=== PATIENT | female | born 1980 | race Caucasian/White ===

== ENCOUNTER 2019-03-20 19:56 | Emergency (ER) | payer SELFPAY ==
[~2019-03-20] VITALS: Ht 175.3 cm; Wt 82.1 kg
[~2019-03-20 19:56] MED LIST: CARAFATE1 G1; LABETALOL; Z.0.SYNTHROID75 MCG PO; Z.1.ZEGERID 40 MG1 E; [UNRECOGNIZED DRUG - OTHER]
--- OUTSIDE RECORDS SUMMARY | 2019-03-20 20:00 | XMS REPORT ---
[facility] Address Unknown Phone Unavailable Care Team Providers Care Helper Metal Hanging Name Role Phone Unavailable Unavailable Payers Payer Name Policy Type Policy Number Effective Date Expiration Date Problems This patient has no known problems. Allergies, Adverse Reactions, Alerts Allergy Name Allergy Type Status Severity Reaction(s) Onset Date Inactive Date Treating Clinician Comments iodine DA Active SV 2017-04-23 00:00:00 benzonatate DA Active SV 2017-04-23 00:00:00 dextromethorphan DA Active SV 2017-04-23 00:00:00 Medications This patient has no known medications. Encounters Start Date/Time End Date/Time Encounter Type Admission Type Attending Clinicians Care Facility Care Department Encounter ID 2017-01-15 00:00:00 Inpatient [facility] [id number] 2017-01-15 00:00:00 Inpatient [facility] [id number] 2017-01-17 00:00:00 2017-01-17 00:00:00 Outpatient [facility] [id number] 2017-01-16 14:18:58 2017-01-16 14:18:58 Outpatient [facility] [id number] 2017-01-16 10:12:14 2017-01-16 00:00:00 Inpatient [facility] [id number] 2017-01-15 19:02:46 2017-01-15 19:02:46 Outpatient [facility] [id number] Results Test Description Test Time Test Comments Text Results Atomic Results Result Comments PROCALCITONIN (PCT) 2019-03-14 15:31:00 PROCALCITONIN (PCT) (test code=PROCAL) 0.47 ng/mL 0.00-0.05 PROCALCITONIN (PCT) NORMAL RANGE (ADULT): <0.05 NG/ML. * a concentration <0.5 ng/mL represents a low risk of severe sepsis and/or septic shock.* a concentration >2 ng/mL represents a high risk of severe sepsis and/or septic shock.Nevertheless, concentrations <0.5 ng/mL do not exclude aninfection, on account of localized infections (withoutsystemic signs) which can be associated with such lowconcentrations, or a systemic infection in its initialstages (< 6 hours). Furthermore, increased procalcitonincan occur without infection. PCT concentrations between 0.5and 2.0 ng/mL should be interpreted taking into account thepatient's history. It is recommended to retest PCT within6-24 hours if any concentrations <2 ng/mL are obtained. PROCALCITONIN (PCT)2019-03-14 15:31:00* Test Item Value Reference Range Comments PROCALCITONIN (PCT) (test code=PROCAL) 0.47 ng/mL 0.00-0.05 PROCALCITONIN (PCT) NORMAL RANGE (ADULT): <0.05 NG/ML. * a concentration <0.5 ng/mL represents a low risk of severe sepsis and/or septic shock.* a concentration >2 ng/mL represents a high risk of severe sepsis and/or septic shock.Nevertheless, concentrations <0.5 ng/mL do not exclude aninfection, on account of localized infections (withoutsystemic signs) which can be associated with such lowconcentrations, or a systemic infection in its initialstages (< 6 hours). Furthermore, increased procalcitonincan occur without infection. PCT concentrations between 0.5and 2.0 ng/mL should be interpreted taking into account thepatient's history. It is recommended to retest PCT within6-24 hours if any concentrations <2 ng/mL are obtained. BASIC METABOLIC [id number] 07:03:00* Test Item Value Reference Range Comments SODIUM (test code=NA) 147 mmol/L 134-147 POTASSIUM (test code=K) 3.1 mmol/L 3.4-5.0 CHLORIDE (test code=CL) 113 mmol/L 100-108 CARBON DIOXIDE (test code=CO2) 26 mmol/L 21-32 ANION GAP (test code=GAP) 8.0 GAP calc 4.0-15.0 GLUCOSE (test code=GLU) 84 MG/DL 70-110 BLOOD UREA NITROGEN (test code=BUN) 9 MG/DL 7-18 GLOMERULAR FILTRATION RATE (test code=GFR) >=60 max estimate estGFR >60 CREATININE (test code=CREAT) 0.6 MG/DL 0.6-1.0 CALCIUM (test code=CA) 7.9 MG/DL 8.5-10.1 CREATINE KINASE (CK)2019-03-14 07:03:00* Test Item Value Reference Range Comments CREATINE KINASE (CK) (test code=CK) 1022 Unit/L 26-192 CBC W/AUTO [id number] 06:36:00* Test Item Value Reference Range Comments WHITE BLOOD CELL (test code=WBC) 14.8 K/mm3 3.5-11.0 RED BLOOD CELL (test code=RBC) 3.21 M/mm3 4.70-6.10 HEMOGLOBIN (test code=HGB) 9.7 G/DL 10.4-14.9 HEMATOCRIT (test code=HCT) 29.8 % 31.5-44.1 MEAN CELL VOLUME (test code=MCV) 92.8 Fl 84.5-98.6 MEAN CELL HGB (test code=MCH) 30.2 pg 27.0-34.2 MEAN CELL HGB CONCETRATION (test code=MCHC) 32.6 G/DL 31.5-34.0 RED CELL DISTRIBUTION WIDTH (test code=RDW) 14.9 SD 11.5-14.5 PLATELET COUNT (test code=PLT) 284.0 K/mm3 150-450 MEAN PLATELET VOLUME (test code=MPV) 12.00 fL 7.0-10.5 NEUTROPHIL % (test code=NT%) 78.4 % 40-76 LYMPHOCYTE % (test code=LY%) 12.6 % 20.5-51.1 MONOCYTE % (test code=MO%) 8.4 % 1.7-9.3 EOSINOPHIL % (test code=EO%) 0.5 % 0.0-6.0 BASOPHIL % (test code=BA%) 0.1 % 0.0-2.0 NEUTROPHIL # (test code=NT#) 11.63 K/mm3 1.8-7.6 LYMPHOCYTE # (test code=LY#) 1.9 K/mm3 0.6-3.2 MONOCYTE # (test code=MO#) 1.3 K/mm3 0.3-1.1 EOSINOPHIL # (test code=EO#) 0.1 K/mm3 0.0-0.4 BASOPHIL # (test code=BA#) 0.0 K/mm3 0.0-0.1 MANUAL DIFF REQUIRED (test code=MDIFF) NO DIFF/SCN CRITERIA CREATINE KINASE (CK)2019-03-13 07:38:00* Test Item Value Reference Range Comments CREATINE KINASE (CK) (test code=CK) 2235 Unit/L 26-192 COMPREHENSIVE METABOLIC [id number] 04:18:00* Test Item Value Reference Range Comments SODIUM (test code=NA) 149 mmol/L 134-147 POTASSIUM (test code=K) 3.4 mmol/L 3.4-5.0 CHLORIDE (test code=CL) 117 mmol/L 100-108 CARBON DIOXIDE (test code=CO2) 24 mmol/L 21-32 ANION GAP (test code=GAP) 8.0 GAP calc 4.0-15.0 GLUCOSE (test code=GLU) 111 MG/DL 70-110 BLOOD UREA NITROGEN (test code=BUN) 7 MG/DL 7-18 GLOMERULAR FILTRATION RATE (test code=GFR) >=60 max estimate estGFR >60 CREATININE (test code=CREAT) 0.6 MG/DL 0.6-1.0 TOTAL PROTEIN (test code=PROT) 5.7 G/DL 6.4-8.2 ALBUMIN (test code=ALB) 2.5 G/DL 3.4-5.0 GLOBULIN (test code=GLOB) 3.2 GM/dL ALBUMIN/GLOBULIN RATIO (test code=A/G) 0.8 RATIO 1.2-2.2 CALCIUM (test code=CA) 7.7 MG/DL 8.5-10.1 BILIRUBIN TOTAL (test code=BILT) 0.50 MG/DL 0.2-1.2 SGOT/AST (test code=AST) 261 Unit/L 15-37 SGPT/ALT (test code=ALT) 479 Unit/L 12-78 ALKALINE PHOSPHATASE TOTAL (test code=ALKP) 59 Unit/L 45-117 CBC W/AUTO [id number] 04:04:00* Test Item Value Reference Range Comments WHITE BLOOD CELL (test code=WBC) 19.5 K/mm3 3.5-11.0 RED BLOOD CELL (test code=RBC) 3.12 M/mm3 4.70-6.10 HEMOGLOBIN (test code=HGB) 9.7 G/DL 10.4-14.9 HEMATOCRIT (test code=HCT) 28.9 % 31.5-44.1 MEAN CELL VOLUME (test code=MCV) 92.6 Fl 84.5-98.6 MEAN CELL HGB (test code=MCH) 31.1 pg 27.0-34.2 MEAN CELL HGB CONCETRATION (test code=MCHC) 33.6 G/DL 31.5-34.0 RED CELL DISTRIBUTION WIDTH (test code=RDW) 14.9 SD 11.5-14.5 PLATELET COUNT (test code=PLT) 256.0 K/mm3 150-450 MEAN PLATELET VOLUME (test code=MPV) 11.60 fL 7.0-10.5 NEUTROPHIL % (test code=NT%) 90.1 % 40-76 LYMPHOCYTE % (test code=LY%) 5.4 % 20.5-51.1 MONOCYTE % (test code=MO%) 4.4 % 1.7-9.3 EOSINOPHIL % (test code=EO%) 0.0 % 0.0-6.0 BASOPHIL % (test code=BA%) 0.1 % 0.0-2.0 NEUTROPHIL # (test code=NT#) 17.61 K/mm3 1.8-7.6 LYMPHOCYTE # (test code=LY#) 1.1 K/mm3 0.6-3.2 MONOCYTE # (test code=MO#) 0.9 K/mm3 0.3-1.1 EOSINOPHIL # (test code=EO#) 0.0 K/mm3 0.0-0.4 BASOPHIL # (test code=BA#) 0.0 K/mm3 0.0-0.1 MANUAL DIFF REQUIRED (test code=MDIFF) NO DIFF/SCN CRITERIA PROCALCITONIN (PCT)2019-03-13 03:30:00* Test Item Value Reference Range Comments PROCALCITONIN (PCT) (test code=PROCAL) 1.69 ng/mL 0.00-0.05 PROCALCITONIN (PCT) NORMAL RANGE (ADULT): <0.05 NG/ML. * a concentration <0.5 ng/mL represents a low risk of severe sepsis and/or septic shock.* a concentration >2 ng/mL represents a high risk of severe sepsis and/or septic shock.Nevertheless, concentrations <0.5 ng/mL do not exclude aninfection, on account of localized infections (withoutsystemic signs) which can be associated with such lowconcentrations, or a systemic infection in its initialstages (< 6 hours). Furthermore, increased procalcitonincan occur without infection. PCT concentrations between 0.5and 2.0 ng/mL should be interpreted taking into account thepatient's history. It is recommended to retest PCT within6-24 hours if any concentrations <2 ng/mL are obtained. PROCALCITONIN (PCT)2019-03-13 03:29:00* Test Item Value Reference Range Comments PROCALCITONIN (PCT) (test code=PROCAL) 1.69 ng/mL 0.00-0.05 PROCALCITONIN (PCT) NORMAL RANGE (ADULT): <0.05 NG/ML. * a concentration <0.5 ng/mL represents a low risk of severe sepsis and/or septic shock.* a concentration >2 ng/mL represents a high risk of severe sepsis and/or septic shock.Nevertheless, concentrations <0.5 ng/mL do not exclude aninfection, on account of localized infections (withoutsystemic signs) which can be associated with such lowconcentrations, or a systemic infection in its initialstages (< 6 hours). Furthermore, increased procalcitonincan occur without infection. PCT concentrations between 0.5and 2.0 ng/mL should be interpreted taking into account thepatient's history. It is recommended to retest PCT within6-24 hours if any concentrations <2 ng/mL are obtained. THROMBOPLASTIN TIME [id number] 23:09:00* Test Item Value Reference Range Comments THROMBOPLASTIN TIME PARTIAL (test code=PTT) 53.5 SECONDS 26-35 - CTA CHEST FOR [id number] 22:22:00 Name: RAQUELMEIJOSE UMAÑA [facility] : 1980 Age/S: 38 / F [address] [facility] [place] Unit #: [id number] Loc: [place] [address] Phys: Bernard Acevedo MD Acct: [id number] Dis Date: Status: ADM IN PHONE #: [phone] Exam Date: 03/12/20192124 FAX #: Reason: PE EXAMS: CPT: [id number] [place] [address] DICTATION LOCATION: H48 HISTORY: Female, 38 years of age with the CT scan showing intermediate probability for pulmonary embolism. EXAM: CT ANGIOGRAPHY OF THE CHEST COMPARISON: Chest x-ray and nuclear VQ scan performed today TECHNIQUE: Helical axial images were obtained from thoracic inlet to upper abdomen with nonionic IV contrast using the CT angiography protocol. Image post processing with MIP and multiplanar reconstruction were performed at the advanced workstation. One or more of the following dose reduction techniques were used: Automated exposure control; adjustment of the mA and/or kV according to the patient size; and/or use of iterative reconstruction technique. FINDINGS: AORTA: No aneurysm or dissection. PULMONARY ARTERIES: Within normal limits size and moderately well enhanced. There is no abnormal filling defect to suggest pulmonary embolism. HEART: Heart size within normal limits. No significant pericardial effusion. MEDIASTINUM: No pathologically enlarged lymph nodes by CT criteria. Thyroid is not seen. PLEURA: There are small bilateral pleural effusions, right greater than areas LUNGS: Patchy alveolar and interstitial changes are seen throughout left upper lobe and left lower lobe. Milder interstitial opacities are seen in right upper lung, however, and right lower lobe. Compressive atelectasis seen in the right. No tracheobronchial filling defects. No significant emphysema. No obvious mass lesion. OTHER: Images through the upper abdomen show a small amount of ascites. Spleen has been surgically removed by history. Several small nodules are seen in the left subdiaphragmatic region, most likely representing small splenules. No acute osseous abnormality. IMPRESSION: 1. No pulmonary embolism. 2. No aortic ane urysm or dissection. 3. Panlobar pneumonia, worst in left lower lobe. 4. Bilateral pleural effusions left greater than right. 5. Small a mount of ascites. PAGE 1 Signed Report (CONTINUED) [facility] [place] [facility] 1980 Age/S: 38 / F [address] [address] [place] Unit #: [id number] Loc: [place] [address] Phys: Bernard Acevedo MD Acct: [id number] Dis Date: Status: ADM IN PHONE #: [phone] Exam Date: 03/12/20192124 FAX #: Reason: PE EXAMS: CPT: [id number] [place] [address] <Continued> at 2222 Reported and signed by: Dawn Isbell MD CC: Bernard Acevedo MD; Cristhian Keene MD Technologist:Jyoti Levin, RT(R)(CT)(MRI) CTDI: DLP: Trnscb Obey e/Time: 03/12/2019 (2221) [email or web address] Orig Print D/T: S: (2225) PAGE 2 Signed Report THROMBOPLASTIN TIME [id number] 18:20:00* Test Item Value Reference Range Comments THROMBOPLASTIN TIME PARTIAL (test code=PTT) 45.7 SECONDS 26-35 THROMBOPLASTIN TIME [id number] 11:50:00* Test Item Value Reference Range Comments THROMBOPLASTIN TIME PARTIAL (test code=PTT) 56.1 SECONDS 26-35 - PULM VENT PERF [id number] 08:52:00 FAX: Cristhian Keene MD [phone] Camps: PM St: ADM Name: JOSE IZQUIERDO [facility] : 2 Age/S: 38/F [address] [address] [place] Unit #: [id number] Loc: L.ICU0 [place] [address] Phys: Cristhian Keene MD Acct: [id number] Dis Date: Status: ADM IN PHONE #: [phone] Exam Date: 03/12/2019 0839 FAX #: Reason: to r/o PE EXAMS: CPT: [id number] PULM VENT PERF IMAG 67806 EXAM: - PULM VENT PERF IMAG LOCATION: C3 HISTORY: Pain RADIOPHARMAC EUTICAL: 5 mCi Tc 99 MAA and 10 mCi Xe-133 gas. COMPARISON: None a vailable time of interpretation. FINDINGS: VENTILATI ON: There is homogeneous distribution of radiotracer on the breath-hold im ages.No retention is seen on the washout images. PERFUSION: There is mild heterogeneous distribution of radiotracer throughout both lungs. Moderate to large segmental perfusion defect identified at the medial segm ent of the right middle lobe. IMPRESSION: Inte rmediate probability for pulmonary embolus. Electronicall y Signed by EVANGELISTA PIERCE M.D. on 03/12/2019 at 0852 Reported and signed by: EVANGELISTA PIERCE M.D. CC: Cristhian Keene MD Techno logist: RADHA Arevalo Transcribed Date/ Time/By: 03/12/2019 (0852) :[email or web address] Orig Print D/T: S: 03/12/2019 (0 855) PAGE 1 Signed Report - XR CHEST 1 [id number] 08:34:00 Name: JOSE SCHOFIELD [facility] : 1980 Age/S: 38 / F [address] [address] [place] Unit #: [id number] Loc: [place] [address] Phys: Cristhian Keene MD Acct: [id number] Dis Date: Status: ADM IN PHONE #: [phone] Exam Date: 03/12/2019 0824 FAX #: Reason: VQ PROTOCOL EXAMS: CPT: [id number] XR CHEST 1 V 01943 Fluoro Time: DAP (Gy m2): Air Kerma (mGy): EXAMINATION: - XR CHEST 1 V. LOCATION: S17. HISTORY: VQ PROTOCOL, pneumonia, AMS, ingestion. COMPARISON: Chest x-ray 03/10/2019. FINDINGS: Examination is limited due to portable technique and patient body habitus.. Cardiac silhouette/Mediastinal contour: Within normal limits. Lungs: New left lung base airspace opacity. No large pleu ral effusion. Pulmonary vascular congestion. Osseous Structu res: No acute osseous abnormalities. Additional Findings: Postope rative clips project over left upper abdomen. IMPRESSION: New left lung base airspace opacity, may represent atelectas is versus infiltrate. Pulmonary vascular congestion. at 0834 Repo rted and signed by: Margarita Gomes M.D. CC: Cristhian Keene MD PAGE 1 Signed Rep ort Name: JOSE SCHOFIELD KAUSHI[facility] [place] : 1980 Age/S: 38 / F [address] [facility] Unit #: [id number] Loc: [place], [place] [address] Phys: Cristhian Keene MD Acct: [id number] Dis Date: Status: ADM IN PHONE #: [phone] Exam Date: 03/12/2019823 FAX #: Reason: VQ PROTOCOL EXAMS: CPT: [id number] XR CHEST 1 V 65538 Fluoro Time: DAP (Gy m2): Air Kerma (mGy): < Continued> Technologist: Soniya Quezada, RT(R); Clifton Pimentel RT(R)(MR) Trnscb Date/Time: 03/12/2019 (0834) [email or web address] Orig Print D/T: S: 03/12/2019 (0837) PAGE 2 Signed Report COMPREHENSIVE METABOLIC [id number] 06:52:00* Test Item Value Reference Range Comments SODIUM (test code=NA) 145 mmol/L 134-147 POTASSIUM (test code=K) 3.5 mmol/L 3.4-5.0 CHLORIDE (test code=CL) 118 mmol/L 100-108 CARBON DIOXIDE (test code=CO2) 22 mmol/L 21-32 ANION GAP (test code=GAP) 5.0 GAP calc 4.0-15.0 GLUCOSE (test code=GLU) 96 MG/DL 70-110 BLOOD UREA NITROGEN (test code=BUN) 7 MG/DL 7-18 GLOMERULAR FILTRATION RATE (test code=GFR) >=60 max estimate estGFR >60 CREATININE (test code=CREAT) 0.6 MG/DL 0.6-1.0 TOTAL PROTEIN (test code=PROT) 6.0 G/DL 6.4-8.2 ALBUMIN (test code=ALB) 2.7 G/DL 3.4-5.0 GLOBULIN (test code=GLOB) 3.3 GM/dL ALBUMIN/GLOBULIN RATIO (test code=A/G) 0.8 RATIO 1.2-2.2 CALCIUM (test code=CA) 7.5 MG/DL 8.5-10.1 BILIRUBIN TOTAL (test code=BILT) 0.40 MG/DL 0.2-1.2 SGOT/AST (test code=AST) 540 Unit/L 15-37 SGPT/ALT (test code=ALT) 653 Unit/L 12-78 ALKALINE PHOSPHATASE TOTAL (test code=ALKP) 53 Unit/L 45-117 [id number] 06:52:00* Test Item Value Reference Range Comments MAGNESIUM (test code=MAG) 1.9 MG/DL 1.8-2.4 T4 [id number] 06:52:00* Test Item Value Reference Range Comments T4 FREE (test code=T4F) 1.20 NG/DL 0.89-1.76 THYROID STIMULATING [id number] 06:52:00* Test Item Value Reference Range Comments THYROID STIMULATING HORMONE (test code=TSH) 4.550 mcIU/ML 0.340-4.820 THROMBOPLASTIN TIME [id number] 06:07:00* Test Item Value Reference Range Comments THROMBOPLASTIN TIME PARTIAL (test code=PTT) 60.1 SECONDS 26-35 CBC W/AUTO [id number] 06:06:00* Test Item Value Reference Range Comments WHITE BLOOD CELL (test code=WBC) 21.4 K/mm3 3.5-11.0 RED BLOOD CELL (test code=RBC) 3.51 M/mm3 4.70-6.10 HEMOGLOBIN (test code=HGB) 10.6 G/DL 10.4-14.9 HEMATOCRIT (test code=HCT) 33.5 % 31.5-44.1 MEAN CELL VOLUME (test code=MCV) 95.4 Fl 84.5-98.6 MEAN CELL HGB (test code=MCH) 30.2 pg 27.0-34.2 MEAN CELL HGB CONCETRATION (test code=MCHC) 31.6 G/DL 31.5-34.0 RED CELL DISTRIBUTION WIDTH (test code=RDW) 15.2 SD 11.5-14.5 PLATELET COUNT (test code=PLT) 261.0 K/mm3 150-450 MEAN PLATELET VOLUME (test code=MPV) 11.30 fL 7.0-10.5 NEUTROPHIL % (test code=NT%) 88.6 % 40-76 LYMPHOCYTE % (test code=LY%) 7.2 % 20.5-51.1 MONOCYTE % (test code=MO%) 4.1 % 1.7-9.3 EOSINOPHIL % (test code=EO%) 0.1 % 0.0-6.0 BASOPHIL % (test code=BA%) 0.0 % 0.0-2.0 NEUTROPHIL # (test code=NT#) 18.95 K/mm3 1.8-7.6 LYMPHOCYTE # (test code=LY#) 1.5 K/mm3 0.6-3.2 MONOCYTE # (test code=MO#) 0.9 K/mm3 0.3-1.1 EOSINOPHIL # (test code=EO#) 0.0 K/mm3 0.0-0.4 BASOPHIL # (test code=BA#) 0.0 K/mm3 0.0-0.1 MANUAL DIFF REQUIRED (test code=MDIFF) NO DIFF/SCN CRITERIA THROMBOPLASTIN TIME [id number] 00:06:00* Test Item Value Reference Range Comments THROMBOPLASTIN TIME PARTIAL (test code=PTT) 85.0 SECONDS 26-35 CREATINE KINASE (CK)2019-03-11 19:20:00* Test Item Value Reference Range Comments CREATINE KINASE (CK) (test code=CK) 5526 Unit/L 26-192 ARTERIAL BLOOD [id number] 18:51:00* Test Item Value Reference Range Comments ARTERIAL BLOOD GAS PH (test code=PHA) 7.37 pH units 7.35-7.45 ARTERIAL BLOOD GAS PCO2 (test code=PCO2A) 33 mmHg 35-45 ARTERIAL BLOOD GAS PO2 (test code=PO2A) 81 mmHg 80-100 BICARBONATE TOTAL HCO3 (test code=HCO3) 18.4 mmol/L 22.0-26.0 BASE EXCESS (test code=JOJO) -5.8 mmol/L -3.0-3.0 ABG O2 SATURATION (test code=SATA) 96 % 90-100 FIO2 (test code=FIO2A) 28 % e 21-100 ABG VENT MODE (test code=MODEA) Nasal Cannula Descript Vent Mode ABG SITE (test code=SITEA) Right Radial ARTKIT DESCRIPTION MODIFIED ANTONIO'S (test code=MODALL) Yes Circ.CHK POSITIVE LACTIC [id number] 18:51:00* Test Item Value Reference Range Comments LACTIC ACID (test code=LACT) 1.2 mmol/L 0.4-2.0 THROMBOPLASTIN TIME [id number] 16:50:00* Test Item Value Reference Range Comments THROMBOPLASTIN TIME PARTIAL (test code=PTT) 118.5 SECONDS 26-35 - XR HIP W/PEL UNI 2+V [id number] 14:47:00 Name: JOSE SCHOFIELD [facility] [place] : 1980 Age/S: 38 / F [address] [address] [place] Unit #: [id number] Loc: [place] [address] Phys: Cristhian Keene MD Acct: [id number] Dis Date: Status: ADM IN PHONE #: [phone] Exam Date: 03/11/2019 1354 FAX #: Reason: pain EXAMS: CPT: [id number] XR HIP W/PEL UNI 2+[place] [address] Fluoro Time: DAP (Gy m2): Air Kerma (mGy): Site ID: [id number] INDICATION: Right hip pain FINDINGS: Osseous alignment and bone mineral density are normal. No fracture or femoral head osteonecrosis. No joint space narrowing or arthritic change demonstrated involving the right hip or SI joint. Soft tissues are within normal limits. IMPRESSION: Normal right hip x-rays at 1447 Reported and signed by: Mechelle Mooney M.D. CC: Cristhian Keene MD PAGE 1 Signed Report Name: JOSE SCHOFIELD ÁLVARO [place] : 1980 Age/S: 38 / F [address] [address] [place] Unit #: [id number] Loc: [place] [address] Phys: Cristhian Keene MD Acct: [id number] Dis Date: Status: ADM IN PHONE #: [phone] Exam Date: 03/11/2019 4489 FAX #: Reason: pain EXAMS: CPT: [id number] XR HIP W/PEL UNI 2+[place] [address] Fluoro Time: DAP (Gy m2): Air Kerma (mGy): < Continued> Technologist: Tashia Iyer, RT(R)(MR); Soniya Quezada, RT(R) Trnscb Date/Time: 03/11/2019 (8238) [id number] Orig Print D/T: S: 03/11/2019 (5070) PAGE 2 Signed Report THROMBOPLASTIN TIME [id number] 11:12:00* Test Item Value Reference Range Comments THROMBOPLASTIN TIME PARTIAL (test code=PTT) 124.6 SECONDS 26-35 LACTIC [id number] 10:47:00* Test Item Value Reference Range Comments LACTIC ACID (test code=LACT) 2.3 mmol/L 0.4-2.0 LACTIC [id number] 06:56:00* Test Item Value Reference Range Comments LACTIC ACID (test code=LACT) 2.6 mmol/L 0.4-2.0 GLYCOSYLATED HEMOGLOBIN [id number] 04:56:00* Test Item Value Reference Range Comments GLYCOSYLATED HEMOGLOBIN (HA1C) (test code=GLYHGB) 4.8 % A1C 4.2-6.3 ESTIMATED AVERAGE GLUCOSE (test code=EAG) 91 MG/DLest THROMBOPLASTIN TIME [id number] 04:44:00* Test Item Value Reference Range Comments THROMBOPLASTIN TIME PARTIAL (test code=PTT) 28.0 SECONDS 26-35 BASIC METABOLIC [id number] 04:32:00* Test Item Value Reference Range Comments SODIUM (test code=NA) 143 mmol/L 134-147 POTASSIUM (test code=K) 4.0 mmol/L 3.4-5.0 CHLORIDE (test code=CL) 115 mmol/L 100-108 CARBON DIOXIDE (test code=CO2) 21 mmol/L 21-32 ANION GAP (test code=GAP) 7.0 GAP calc 4.0-15.0 GLUCOSE (test code=GLU) 118 MG/DL 70-110 BLOOD UREA NITROGEN (test code=BUN) 11 MG/DL 7-18 GLOMERULAR FILTRATION RATE (test code=GFR) 54 estGFR >60 CREATININE (test code=CREAT) 1.2 MG/DL 0.6-1.0 CALCIUM (test code=CA) 7.1 MG/DL 8.5-10.1 LIPID PROFILE (CORONARY RISK)2019-03-11 04:32:00* Test Item Value Reference Range Comments TRIGLYCERIDES (test code=TRIG) 48 MG/DL 0-150 CHOLESTEROL (test code=CHOL) 90 MG/DL 133-200 CHOLESTEROL/HDL RATIO (test code=CHOLHDL) 1.67 RATIO >0 HDL CHOLESTEROL (test code=HDL) 54 MG/DL 40-59 NON-HDL CHOLESTEROL (test code=NHDL) 36 mg/dL <130 LIPOPROTEIN LDL (test code=LDL) 30 MG/DL 0-129 LDL/HDL (test code=LDL/HDL) 0.55 Ratio 1.48-3.22 Avg CBC W/AUTO [id number] 04:22:00* Test Item Value Reference Range Comments WHITE BLOOD CELL (test code=WBC) 21.9 K/mm3 3.5-11.0 RED BLOOD CELL (test code=RBC) 3.54 M/mm3 4.70-6.10 HEMOGLOBIN (test code=HGB) 11.0 G/DL 10.4-14.9 HEMATOCRIT (test code=HCT) 33.6 % 31.5-44.1 MEAN CELL VOLUME (test code=MCV) 94.9 Fl 84.5-98.6 MEAN CELL HGB (test code=MCH) 31.1 pg 27.0-34.2 MEAN CELL HGB CONCETRATION (test code=MCHC) 32.7 G/DL 31.5-34.0 RED CELL DISTRIBUTION WIDTH (test code=RDW) 14.7 SD 11.5-14.5 PLATELET COUNT (test code=PLT) 276.0 K/mm3 150-450 MEAN PLATELET VOLUME (test code=MPV) 10.60 fL 7.0-10.5 NEUTROPHIL % (test code=NT%) 90.0 % 40-76 LYMPHOCYTE % (test code=LY%) 5.9 % 20.5-51.1 MONOCYTE % (test code=MO%) 4.1 % 1.7-9.3 EOSINOPHIL % (test code=EO%) 0.0 % 0.0-6.0 BASOPHIL % (test code=BA%) 0.0 % 0.0-2.0 NEUTROPHIL # (test code=NT#) 19.71 K/mm3 1.8-7.6 LYMPHOCYTE # (test code=LY#) 1.3 K/mm3 0.6-3.2 MONOCYTE # (test code=MO#) 0.9 K/mm3 0.3-1.1 EOSINOPHIL # (test code=EO#) 0.0 K/mm3 0.0-0.4 BASOPHIL # (test code=BA#) 0.0 K/mm3 0.0-0.1 MANUAL DIFF REQUIRED (test code=MDIFF) NO DIFF/SCN CRITERIA LACTIC [id number] 03:26:00* Test Item Value Reference Range Comments LACTIC ACID (test code=LACT) 2.9 mmol/L 0.4-2.0 HEPATIC FUNCTION [id number] 03:25:00* Test Item Value Reference Range Comments TOTAL PROTEIN (test code=PROT) 5.9 G/DL 6.4-8.2 ALBUMIN (test code=ALB) 2.8 G/DL 3.4-5.0 BILIRUBIN TOTAL (test code=BILT) 0.40 MG/DL 0.2-1.2 BILIRUBIN DIRECT (test code=BILD) 0.10 MG/DL 0.00-0.30 BILIRUBIN INDIRECT (test code=BILIND) 0.30 MG/DL 0.2-1.2 SGOT/AST (test code=AST) 1007 Unit/L 15-37 SGPT/ALT (test code=ALT) 674 Unit/L 12-78 ALKALINE PHOSPHATASE TOTAL (test code=ALKP) 42 Unit/L 45-117 Last Dose Date: 03/10/19 Dose Time: 0600RULE OUT PR [id number] 03:25:00* Test Item Value Reference Range Comments CREATINE KINASE (CK) (test code=CK) 6721 Unit/L 26-192 TROPONIN-I (test code=TROPI) 3.280 NG/ML 0.000-0.045 Negative: </=0.045 Positive: >/=0.046 Correlation with serial results, other cardiac markers, and clinical findings is necessary to determine the clinical significance of this result. Quantitative results using different methodologies should not be compared to one another as numerical results may varyby method. Last Dose Date: 03/10/19Last Dose Time: [id number] 03:25:00* Test Item Value Reference Range Comments ACETAMINOPHEN (test code=ACET) < 2.0 mcG/ML 10.0-30.0 Last Dose Date: 03/10/19Last Dose Time: [id number] 02:52:00* Test Item Value Reference Range Comments AMMONIA (test code=AMM) 26 mcMOL/L 11-32 RULE OUT PR [id number] 22:39:00* Test Item Value Reference Range Comments CREATINE KINASE (CK) (test code=CK) 6615 Unit/L 26-192 TROPONIN-I (test code=TROPI) 3.000 NG/ML 0.000-0.045 Negative: </=0.045 Positive: >/=0.046 Correlation with serial results, other cardiac markers, and clinical findings is necessary to determine the clinical significance of this result. Quantitative results using different methodologies should not be compared to one another as numerical results may varyby method. LACTIC [id number] 22:36:00* Test Item Value Reference Range Comments LACTIC ACID (test code=LACT) 3.3 mmol/L 0.4-2.0 - US ABDOMEN [id number] 22:33:00 Name: JOSE SCHOFIELD [facility] : 1980 Age/S: 38 / F [address] [facility] Unit #: [id number] Loc: [place] [address] Phys: Cristhian Keene MD Acct: [id number] Dis Date: Status: ADM IN PHONE #: [phone] Exam Date: 03/10/20192007 FAX #: Reason: Elevated LFT EXAMS: CPT: [id number] US ABDOMEN COMPLETE 12754 HISTORY: Pain Location: C3 FINDINGS: No gallstones demonstrated. There is suggestion of small amount of sludge. Gallbladder wall thickening is present. The common bile duct is within normal limits measuring 2 mm. There is mild increased echogenicity throughout the liver consistent with fatty infiltration. No focal liver lesion is demonstrated. The kidneys are symmetric in size and appearance bilaterally. No hydronephrosis. Spleen is absent. Aorta, intrahepatic IVC, and visualized portions of the pancreas show no significant abnormalities. IMPRESSION: 1. Small amount of sludge suggested in the gallbladder with gallbladder wall thickening. No gallstones demonstrated. 2. No biliary dilatation. 3. Prior splenectomy at 2233 Reported and signed by: Lester Calle M.D. CC: Cristhian Keene MD Technologist: Sonam Hawkins RDMS Trnscb Date/Time: 03/10/2019 (2232) [id number] PAGE 1 Signed Report Name: JOSE SCHOFIELD : 1980 Age/S: 38 / F [address] [address] Unit #: [id number] Loc: [place] [address] Phys: Cristhian Keene MD Acct: [id number] Dis Date: Status: ADM IN PHONE #: [phone] Exam Date: 03/10/20192007 FAX #: Reason: Elevated LFT EXAMS: CPT: [id number] US ABDOMEN COMPLETE 27608 <Continued> Orig Print D/T: S: 03/10/2019 (2235) Probe: PAGE 2 Signed Report THROMBOPLASTIN TIME [id number] 22:12:00* Test Item Value Reference Range Comments THROMBOPLASTIN TIME PARTIAL (test code=PTT) 37.8 SECONDS 26-35 UA RFLX MICR CULT IF [id number] 22:07:00* Test Item Value Reference Range Comments UA COLOR (test code=COLU) DARK YELLOW discript YEL/STRAW Previously reported result: YELLOW discriptEdited by: L.LAB.DTS on 03/10/19:2206 UA APPEARANCE (test code=APPU) SLIGHTLY CLOUDY discript CLEAR Previously reported result: CLEAR discriptEdited by: L.LAB.DTS on 03/10/19:2205 UA GLUCOSE DIPSTICK (test code=DGLUU) NEGATIVE mg/dL NEG UA BILIRUBIN DIPSTICK (test code=BILU) NEGATIVE mg/dL NEG UA KETONE DIPSTICK (test code=KETU) TRACE mg/dL NEG UA SPECIFIC GRAVITY (test code=SGU) >=1.030 SG 1.005-1.030 UA BLOOD DIPSTICK (test code=ANUSHA) 3+ mg/DL NEG UA PH DIPSTICK (test code=PAPO) 5.5 pH UNITS 5.0-7.0 UA PROTEIN DIPSTICK (test code=PROU) 2+ mg/dL NEG UA UROBILINIOGEN DIPSTICK (test code=URO) 1.0 mg/dL <2.0 UA NITRITE DIPSTICK (test code=HELEN) NEGATIVE SCREEN NEG UA LEUKOCYTE ESTERASE DIPSTICK (test code=LEUU) NEGATIVE Leuk/mcL NEGATIVE UA WBC (test code=WBCU) NONE SEEN #WBC/HPF 0-3 UA RBC (test code=RBCU) 1-3 #RBC/HPF 0-3 UA BACTERIA (test code=BACU) NONE SEEN /HPF NONE-TRACE UA SQUAMOUS CELLS (test code=SQU) NONE SEEN /HPF NONE UA AMORPHOUS SEDIMENT (test code=AMORU) 1+ NONE SEEN UA CULTURE NEEDED? (test code=UACULT) NO, WBC<10 Criteria Culture CHK SOURCE OF URINE: CLEAN CATCHIndication for culture: Delirium-if no other src DRUGS OF ABUSE SCREEN [id number] 22:07:00* Test Item Value Reference Range Comments URN COCAINE (test code=COCAURN) NEGATIVE SCcutoff <300 NG/ML URN CANNABINOIDS (test code=CANNABURN) NEGATIVE SCcutoff <50 NG/ML URN AMPHETAMINE (test code=AMPHETURN) POSITIVE SCcutoff <1000 NG/ML URN BARBITURATE (test code=BARBITURN) NEGATIVE SCcutoff <200 NG/ML URN BENZODIAZEPINE (test code=BENZOURN) NEGATIVE SCcutoff <200 NG/ML URN OPIATES (test code=OPIATURN) POSITIVE SCcutoff <2000 NG/ML URN PHENCYCLIDINE (PCP) (test code=PHENCURN) NEGATIVE SCcutoff <25 NG/ML URN METHADONE (test code=METHAURN) NEGATIVE SCcutoff <300 NG/ML SOURCE OF URINE: CLEAN CATCHIndication for culture: Delirium-if no other src UA RFLX MICR CULT IF [id number] 22:04:00* Test Item Value Reference Range Comments UA COLOR (test code=COLU) YELLOW discript YEL/STRAW UA APPEARANCE (test code=APPU) CLEAR discript CLEAR UA GLUCOSE DIPSTICK (test code=DGLUU) NEGATIVE mg/dL NEG UA BILIRUBIN DIPSTICK (test code=BILU) NEGATIVE mg/dL NEG UA KETONE DIPSTICK (test code=KETU) TRACE mg/dL NEG UA SPECIFIC GRAVITY (test code=SGU) >=1.030 SG 1.005-1.030 UA BLOOD DIPSTICK (test code=ANUSHA) 3+ mg/DL NEG UA PH DIPSTICK (test code=PAPO) 5.5 pH UNITS 5.0-7.0 UA PROTEIN DIPSTICK (test code=PROU) 2+ mg/dL NEG UA UROBILINIOGEN DIPSTICK (test code=URO) 1.0 mg/dL <2.0 UA NITRITE DIPSTICK (test code=HELEN) NEGATIVE SCREEN NEG UA LEUKOCYTE ESTERASE DIPSTICK (test code=LEUU) NEGATIVE Leuk/mcL NEGATIVE UA WBC (test code=WBCU) NONE SEEN #WBC/HPF 0-3 UA RBC (test code=RBCU) 1-3 #RBC/HPF 0-3 UA BACTERIA (test code=BACU) NONE SEEN /HPF NONE-TRACE UA SQUAMOUS CELLS (test code=SQU) NONE SEEN /HPF NONE UA AMORPHOUS SEDIMENT (test code=AMORU) 1+ NONE SEEN UA CULTURE NEEDED? (test code=UACULT) NO, WBC<10 Criteria Culture CHK SOURCE OF URINE: CLEAN CATCHIndication for culture: Delirium-if no other src DRUGS OF ABUSE SCREEN [id number] 22:04:00* Test Item Value Reference Range Comments URN COCAINE (test code=COCAURN) NEGATIVE SCcutoff <300 NG/ML URN CANNABINOIDS (test code=CANNABURN) NEGATIVE SCcutoff <50 NG/ML URN AMPHETAMINE (test code=AMPHETURN) POSITIVE SCcutoff <1000 NG/ML URN BARBITURATE (test code=BARBITURN) NEGATIVE SCcutoff <200 NG/ML URN BENZODIAZEPINE (test code=BENZOURN) NEGATIVE SCcutoff <200 NG/ML URN OPIATES (test code=OPIATURN) POSITIVE SCcutoff <2000 NG/ML URN PHENCYCLIDINE (PCP) (test code=PHENCURN) NEGATIVE SCcutoff <25 NG/ML URN METHADONE (test code=METHAURN) NEGATIVE SCcutoff <300 NG/ML SOURCE OF URINE: CLEAN CATCHIndication for culture: Delirium-if no other src UA RFLX MICR CULT IF [id number] 21:33:00* Test Item Value Reference Range Comments UA COLOR (test code=COLU) YELLOW discript YEL/STRAW UA APPEARANCE (test code=APPU) CLEAR discript CLEAR UA GLUCOSE DIPSTICK (test code=DGLUU) NEGATIVE mg/dL NEG UA BILIRUBIN DIPSTICK (test code=BILU) NEGATIVE mg/dL NEG UA KETONE DIPSTICK (test code=KETU) TRACE mg/dL NEG UA SPECIFIC GRAVITY (test code=SGU) >=1.030 SG 1.005-1.030 UA BLOOD DIPSTICK (test code=ANUSHA) 3+ mg/DL NEG UA PH DIPSTICK (test code=PAPO) 5.5 pH UNITS 5.0-7.0 UA PROTEIN DIPSTICK (test code=PROU) 2+ mg/dL NEG UA UROBILINIOGEN DIPSTICK (test code=URO) 1.0 mg/dL <2.0 UA NITRITE DIPSTICK (test code=HELEN) NEGATIVE SCREEN NEG UA LEUKOCYTE ESTERASE DIPSTICK (test code=LEUU) NEGATIVE Leuk/mcL NEGATIVE UA CULTURE NEEDED? (test code=UACULT) NO, WBC<10 Criteria Culture CHK SOURCE OF URINE: CLEAN CATCHIndication for culture: Delirium-if no other src DRUGS OF ABUSE SCREEN [id number] 21:33:00* Test Item Value Reference Range Comments URN COCAINE (test code=COCAURN) NEGATIVE SCcutoff <300 NG/ML URN CANNABINOIDS (test code=CANNABURN) NEGATIVE SCcutoff <50 NG/ML URN AMPHETAMINE (test code=AMPHETURN) POSITIVE SCcutoff <1000 NG/ML URN BARBITURATE (test code=BARBITURN) NEGATIVE SCcutoff <200 NG/ML URN BENZODIAZEPINE (test code=BENZOURN) NEGATIVE SCcutoff <200 NG/ML URN OPIATES (test code=OPIATURN) POSITIVE SCcutoff <2000 NG/ML URN PHENCYCLIDINE (PCP) (test code=PHENCURN) NEGATIVE SCcutoff <25 NG/ML URN METHADONE (test code=METHAURN) NEGATIVE SCcutoff <300 NG/ML SOURCE OF URINE: CLEAN CATCHIndication for culture: Delirium-if no other src UA RFLX MICR CULT IF [id number] 21:23:00* Test Item Value Reference Range Comments UA COLOR (test code=COLU) YELLOW discript YEL/STRAW UA APPEARANCE (test code=APPU) CLEAR discript CLEAR UA GLUCOSE DIPSTICK (test code=DGLUU) NEGATIVE mg/dL NEG UA BILIRUBIN DIPSTICK (test code=BILU) NEGATIVE mg/dL NEG UA KETONE DIPSTICK (test code=KETU) TRACE mg/dL NEG UA SPECIFIC GRAVITY (test code=SGU) >=1.030 SG 1.005-1.030 UA BLOOD DIPSTICK (test code=ANUSHA) 3+ mg/DL NEG UA PH DIPSTICK (test code=PAPO) 5.5 pH UNITS 5.0-7.0 UA PROTEIN DIPSTICK (test code=PROU) 2+ mg/dL NEG UA UROBILINIOGEN DIPSTICK (test code=URO) 1.0 mg/dL <2.0 UA NITRITE DIPSTICK (test code=HELEN) NEGATIVE SCREEN NEG UA LEUKOCYTE ESTERASE DIPSTICK (test code=LEUU) NEGATIVE Leuk/mcL NEGATIVE UA CULTURE NEEDED? (test code=UACULT) NO, WBC<10 Criteria Culture CHK SOURCE OF URINE: CLEAN CATCHIndication for culture: Delirium-if no other src DRUGS OF ABUSE SCREEN [id number] 21:23:00* Test Item Value Reference Range Comments URN COCAINE (test code=COCAURN) SCcutoff <300 NG/ML URN CANNABINOIDS (test code=CANNABURN) SCcutoff <50 NG/ML URN AMPHETAMINE (test code=AMPHETURN) SCcutoff <1000 NG/ML URN BARBITURATE (test code=BARBITURN) SCcutoff <200 NG/ML URN BENZODIAZEPINE (test code=BENZOURN) SCcutoff <200 NG/ML URN OPIATES (test code=OPIATURN) SCcutoff <2000 NG/ML URN PHENCYCLIDINE (PCP) (test code=PHENCURN) SCcutoff <25 NG/ML URN METHADONE (test code=METHAURN) SCcutoff <300 NG/ML SOURCE OF URINE: CLEAN CATCHIndication for culture: Delirium-if no other src UA RFLX MICR CULT IF [id number] 20:50:00* Test Item Value Reference Range Comments UA COLOR (test code=COLU) YELLOW discript YEL/STRAW UA APPEARANCE (test code=APPU) CLEAR discript CLEAR UA GLUCOSE DIPSTICK (test code=DGLUU) NEGATIVE mg/dL NEG UA BILIRUBIN DIPSTICK (test code=BILU) NEGATIVE mg/dL NEG UA KETONE DIPSTICK (test code=KETU) TRACE mg/dL NEG UA SPECIFIC GRAVITY (test code=SGU) >=1.030 SG 1.005-1.030 UA BLOOD DIPSTICK (test code=ANUSHA) 3+ mg/DL NEG UA PH DIPSTICK (test code=PAPO) 5.5 pH UNITS 5.0-7.0 UA PROTEIN DIPSTICK (test code=PROU) 2+ mg/dL NEG UA UROBILINIOGEN DIPSTICK (test code=URO) 1.0 mg/dL <2.0 UA NITRITE DIPSTICK (test code=HELEN) NEGATIVE SCREEN NEG UA LEUKOCYTE ESTERASE DIPSTICK (test code=LEUU) NEGATIVE Leuk/mcL NEGATIVE UA CULTURE NEEDED? (test code=UACULT) Criteria Culture CHK SOURCE OF URINE: CLEAN CATCHIndication for culture: Delirium-if no other src DRUGS OF ABUSE SCREEN [id number] 20:50:00* Test Item Value Reference Range Comments URN COCAINE (test code=COCAURN) SCcutoff <300 NG/ML URN CANNABINOIDS (test code=CANNABURN) SCcutoff <50 NG/ML URN AMPHETAMINE (test code=AMPHETURN) SCcutoff <1000 NG/ML URN BARBITURATE (test code=BARBITURN) SCcutoff <200 NG/ML URN BENZODIAZEPINE (test code=BENZOURN) SCcutoff <200 NG/ML URN OPIATES (test code=OPIATURN) SCcutoff <2000 NG/ML URN PHENCYCLIDINE (PCP) (test code=PHENCURN) SCcutoff <25 NG/ML URN METHADONE (test code=METHAURN) SCcutoff <300 NG/ML SOURCE OF URINE: CLEAN CATCHIndication for culture: Delirium-if no other src - DUP VEIN [id number] 20:50:00 [facility] [place] [facility] 1980 Age/S: 38 / F [id number] [place] [address] Unit #: [id number] Loc: [place] [address] Phys: Roxy Dinero MD Acct: [id number] Dis Date: Status: ADM IN PHONE #: [phone] Exam Date: 03/10/20191929 FAX #: Reason: R/O DVT EXAMS: CPT: [id number] DUP VEIN CLARISSE [address] Bilater[place]ower extremity peripheral venous Doppler Clinical indication: Swelling Comparison: None Location B2 Doppler interrogation of the right and left common femoral, superficial femoral, popliteal and posterior tibial veins was performed using color Doppler, grayscale and pulsed Doppler waveform analysis. Appropriate color flow, phasic flow, augmentation and compression is demonstrated in all the interrogated vessels. Impression: No evidence of deep venous thrombosis. at 2049 Reported and signed by: Deedee Saeed M.D. CC: Roxy Dinero MD; Cristhian Keene MD Technologist: Sonam Hawkins RDMS Trnazb Date/Time: 03/10/2019 (2049) Ranulfo PAGE 1 Signed Report Name: [facility] SCHOFIELD [facility] [place] [facility] 1980 Age/S: 38 / F [address] [place] [address] Unit #: [id number] Loc: [place] [address] Phys: Roxy Dinero MD Acct: [id number] Dis Date: Status: ADM IN PHONE #: [phone] Exam Date: 03/10/20191929 FAX #: Reason: R/O DVT EXAMS: CPT: [id number] DUP VEIN CLARISSE 51417 <Continued > Orig Print D/T: S: 03/10/2019 (2053) Probe: PAGE 2 Signed Report ARTERIAL BLOOD [id number] 19:00:00* Test Item Value Reference Range Comments ARTERIAL BLOOD GAS PH (test code=PHA) 7.23 pH units 7.35-7.45 ARTERIAL BLOOD GAS PCO2 (test code=PCO2A) 37 mmHg 35-45 ARTERIAL BLOOD GAS PO2 (test code=PO2A) 440 mmHg 80-100 BICARBONATE TOTAL HCO3 (test code=HCO3) 15.2 mmol/L 22.0-26.0 BASE EXCESS (test code=JOJO) -11.5 mmol/L -3.0-3.0 ABG O2 SATURATION (test code=SATA) 100 % 90-100 FIO2 (test code=FIO2A) 100 % e 21-100 ABG VENT MODE (test code=MODEA) BiPAP Descript Vent Mode ABG PEEP (test code=PEEPA) 5.0 cm H20 0.0-99.9 ABG PRESSURE SUPPORT (test code=PSABG) 12.0 cm H20 >0 ABG SITE (test code=SITEA) Right Radial ARTKIT DESCRIPTION MODIFIED ANTONIO'S (test code=MODALL) Yes Circ.CHK POSITIVE RULE OUT PR [id number] 18:57:00* Test Item Value Reference Range Comments CREATINE KINASE (CK) (test code=CK) 3825 Unit/L 26-192 TROPONIN-I (test code=TROPI) 2.480 NG/ML 0.000-0.045 .65 NG/MLNegative: </=0.045 Positive: >/=0.046 Correlation with serial results, other cardiac markers, and clinical findings is necessary to determine the clinical significance of this result. Quantitative results using different methodologies should not be compared to one another as numerical results may varyby method. T4 [id number] 18:57:00* Test Item Value Reference Range Comments T4 FREE (test code=T4F) 1.28 NG/DL 0.89-1.76 THYROID STIMULATING [id number] 18:57:00* Test Item Value Reference Range Comments THYROID STIMULATING HORMONE (test code=TSH) 2.750 mcIU/ML 0.340-4.820 [id number] 18:36:00* Test Item Value Reference Range Comments D-DIMER (test code=DDIMER) 4542 ng/mLFEU 215-500 LACTIC [id number] 17:56:00* Test Item Value Reference Range Comments LACTIC ACID (test code=LACT) 5.4 mmol/L 0.4-2.0 PROTHROMBIN [id number] 17:48:00* Test Item Value Reference Range Comments PT PATIENT (test code=PTP) 13.2 SECONDS 9.3-12.9 INTERNATIONAL NORMAL RATIO (test code=INR) 1.14 INR Unit 0.8-1.2 THROMBOPLASTIN TIME [id number] 17:48:00* Test Item Value Reference Range Comments THROMBOPLASTIN TIME PARTIAL (test code=PTT) 21.2 SECONDS 26-35 LACTIC ACID [id number] 15:34:00* Test Item Value Reference Range Comments LACTIC ACID POC (test code=LACTP) 7.52 MMOL/L 0.90-1.70 COMPREHENSIVE METABOLIC [id number] 13:42:00* Test Item Value Reference Range Comments SODIUM (test code=NA) 148 mmol/L 134-147 POTASSIUM (test code=K) 3.9 mmol/L 3.4-5.0 CHLORIDE (test code=CL) 112 mmol/L 100-108 CARBON DIOXIDE (test code=CO2) 23 mmol/L 21-32 ANION GAP (test code=GAP) 13.0 GAP calc 4.0-15.0 GLUCOSE (test code=GLU) 47 MG/DL 70-110 BLOOD UREA NITROGEN (test code=BUN) 8 MG/DL 7-18 GLOMERULAR FILTRATION RATE (test code=GFR) 34 estGFR >60 CREATININE (test code=CREAT) 1.8 MG/DL 0.6-1.0 TOTAL PROTEIN (test code=PROT) 7.6 G/DL 6.4-8.2 ALBUMIN (test code=ALB) 3.7 G/DL 3.4-5.0 GLOBULIN (test code=GLOB) 3.9 GM/dL ALBUMIN/GLOBULIN RATIO (test code=A/G) 1.0 RATIO 1.2-2.2 CALCIUM (test code=CA) 8.4 MG/DL 8.5-10.1 BILIRUBIN TOTAL (test code=BILT) 0.40 MG/DL 0.2-1.2 SGOT/AST (test code=AST) 330 Unit/L 15-37 SGPT/ALT (test code=ALT) 254 Unit/L 12-78 ALKALINE PHOSPHATASE TOTAL (test code=ALKP) 67 Unit/L 45-117 Completed by Nursing: [id number] 13:42:00* Test Item Value Reference Range Comments ALCOHOL (test code=ALC) < 3 MG/DL 0-10 Completed by Nursing: NOHCG [id number] 13:34:00* Test Item Value Reference Range Comments HCG POC (test code=HCGPOC) <5 IU/L <5.0 <5.0 IU/L NEGATIVE5.0 - 25.0 IU/L INDETERMINATE>25.0 POSITIVE Detection of low levels of hCG does not rule out .Because hCG values double approximately every 48 hours in anormal , patients with low levels of hCG should beresampled and retested after 48 hours LACTIC ACID [id number] 13:34:00* Test Item Value Reference Range Comments LACTIC ACID POC (test code=LACTP) 7.39 MMOL/L 0.90-1.70 CBC W/AUTO [id number] 13:23:00* Test Item Value Reference Range Comments WHITE BLOOD CELL (test code=WBC) 16.0 K/mm3 3.5-11.0 RED BLOOD CELL (test code=RBC) 4.44 M/mm3 4.70-6.10 HEMOGLOBIN (test code=HGB) 13.5 G/DL 10.4-14.9 HEMATOCRIT (test code=HCT) 43.1 % 31.5-44.1 MEAN CELL VOLUME (test code=MCV) 97.1 Fl 84.5-98.6 MEAN CELL HGB (test code=MCH) 30.4 pg 27.0-34.2 MEAN CELL HGB CONCETRATION (test code=MCHC) 31.3 G/DL 31.5-34.0 RED CELL DISTRIBUTION WIDTH (test code=RDW) 14.4 SD 11.5-14.5 PLATELET COUNT (test code=PLT) 371.0 K/mm3 150-450 MEAN PLATELET VOLUME (test code=MPV) 10.50 fL 7.0-10.5 NEUTROPHIL % (test code=NT%) 85.5 % 40-76 LYMPHOCYTE % (test code=LY%) 5.8 % 20.5-51.1 MONOCYTE % (test code=MO%) 8.5 % 1.7-9.3 EOSINOPHIL % (test code=EO%) 0.1 % 0.0-6.0 BASOPHIL % (test code=BA%) 0.1 % 0.0-2.0 NEUTROPHIL # (test code=NT#) 13.68 K/mm3 1.8-7.6 LYMPHOCYTE # (test code=LY#) 0.9 K/mm3 0.6-3.2 MONOCYTE # (test code=MO#) 1.4 K/mm3 0.3-1.1 EOSINOPHIL # (test code=EO#) 0.0 K/mm3 0.0-0.4 BASOPHIL # (test code=BA#) 0.0 K/mm3 0.0-0.1 MANUAL DIFF REQUIRED (test code=MDIFF) NO DIFF/SCN CRITERIA CHEMISTRY 8 [id number] 13:15:00* Test Item Value Reference Range Comments ISTAT-SODIUM (test code=NAP) mmol/L 135-146 ISTAT-POTASSIUM (test code=KP) mmol/L 3.5-4.9 ISTAT-CHLORIDE (test code=CLP) mmol/L 98-109 ISTAT-CARBON DIOXIDE (test code=ISTAT-CO2) mmol/L 24-29 ISTAT CALCIUM IONIZED (test code=ISTAT-DEJUAN) mmol/L 1.12-1.32 ISTAT-GLUCOSE (test code=GLUP) mg/dL 70-105 ISTAT-BUN (test code=BUNP) mg/dL 8-26 BEDSIDE CREATININE (test code=CREATBED) mg/dL 0.6-1.3 GLOMERULAR FILTRATION RATE POC (test code=GFRBED) 39 64-149 CHEMISTRY 8 [id number] 13:15:00* Test Item Value Reference Range Comments ISTAT-SODIUM (test code=NAP) 147 mmol/L 135-146 ISTAT-POTASSIUM (test code=KP) 3.7 mmol/L 3.5-4.9 ISTAT-CHLORIDE (test code=CLP) 110 mmol/L 98-109 ISTAT-CARBON DIOXIDE (test code=ISTAT-CO2) 21 mmol/L 24-29 ISTAT CALCIUM IONIZED (test code=ISTAT-DEJUAN) 1.14 mmol/L 1.12-1.32 ISTAT-GLUCOSE (test code=GLUP) 51 mg/dL 70-105 ISTAT-BUN (test code=BUNP) 7 mg/dL 8-26 BEDSIDE CREATININE (test code=CREATBED) 1.6 mg/dL 0.6-1.3 GLOMERULAR FILTRATION RATE POC (test code=GFRBED) 39 64-149 TROPONIN I [id number] 13:15:00* Test Item Value Reference Range Comments TROPONIN I RAPID (test code=TROPIRAP) 0.31 ng/mL 0.00-0.08 Results above 0.08 are consistent with NACB IFCCCommittee recommendations to use the 99th percentile of anormal population as a reference decision-limit. - The use of serial sampling and testingprotocol is arecommended practice.- An elevated troponinlevel alone is often not sufficientfor diagnosis of myocardial infraction. - XR CHEST 1 [id number] 13:08:00 Name: JOSE SCHOFIELD [facility] : 1980 Age/S: 38 / F [address] [address] Unit #: [id number] Loc: [place] [address] Phys: Kirt Nolasco MD Acct: [id number] Dis Date: Status: PRE ER PHONE #: [phone] Exam Date: 03/10/2019 1303 FAX #: Reason: hypoxia EXAMS: CPT: [id number] XR CHEST 1 V 60824 Fluoro Time: DAP (Gy m2): Air Kerma (mGy): Portable chest CLINICAL INDICATION: Hypoxia COMPARISON: 08/18/2019 Location B2 Patchy pulmonary opacity throughout the left upper and lower lobe is consistent with pneumonia. There is mild hazy opacity at the right lung base as well. Right lung is otherwise clear. Heart is normal in size. Bony structures are unremarkable. IMPRESSION: Pneumonia on the left at 1308 Reported and signed by: Deedee Saeed M.D. CC: Kirt Nolasco MD PAGE 1 Signed Report Name: [facility] [place] [facility] 1980 Age/S: 38 / F [address] [address] Unit #: [id number] Loc: [place] [address] Phys: Kirt Nolasco MD Acct: [id number] Dis Date: Status: PRE ER PHONE #: [phone] Exam Date: 03/10/2019 1303 FAX #: Reason: hypoxia EXAMS: CPT: [id number] XR CHEST 1 V 45241 Fluoro Time: DAP (Gy m2): Air Kerma (mGy): < Continued> Technologist: Saad Samayoa, RT(R)(CT) Trnscb Date/Time: 03/10/2019 (1424) [place] Orig Print D/T: S: 03/10/2019 (7289) PAGE 2 Signed Report
--- NOTE | 2019-03-20 20:37 | Diagnostic Imaging Report ---
EXAMINATION: CHEST 2 VIEWS INDICATION: Cough ^cough COMPARISON: None FINDINGS: TUBES and LINES: None. LUNGS: Lungs are well inflated. Lungs are clear. There is no evidence of pneumonia or pulmonary edema. PLEURA: No pleural effusion or pneumothorax. HEART AND MEDIASTINUM: The cardiomediastinal silhouette is unremarkable. BONES AND SOFT TISSUES: No acute osseous lesion. Soft tissues are unremarkable. UPPER ABDOMEN: No free air under the diaphragm. IMPRESSION: No acute thoracic abnormality. Signed by: Dr. Jim Loco M.D. on 03/20/2019 8:33 PM
== END 2019-03-20 20:55 | disposition home or self-care (01) ==
LOC: ER 19:56
DX: R05 Cough (principal); J20.9 Acute bronchitis, unspecified
CPT/HCPCS: 71046; 99283